=== PATIENT | male | born 1985 | race Caucasian/White ===

== ENCOUNTER 2017-02-17 18:27 | Emergency (ER) | payer SELFPAY ==
[2017-02-17 18:38] VITALS: BP 138/88
[2017-02-17 18:55] LABS: Hematocrit 23.7 % (35.5-45.6); Hemoglobin 8.5 gm/dl (11.8-15.2); Mean Corpuscular HGB Conc 36 % (32-34); Mean Corpuscular Hemoglobin 34 pg (28-32); Mean Corpuscular Volume 96 fl (84-94); Platelet Count 268 K/mm3 (140-440); Red Blood Count 2.47 M/mm3 (3.65-5.03); White Blood Count 7.8 K/mm3 (4.5-11.0)
[2017-02-17 18:58] LABS: Red Cell Distribution Width 27.1 % (13.2-15.2)
[2017-02-17] MEDS ORDERED: D5NS 0.2% 1,000 ML IV SCH (19:00)
[2017-02-17 21:08] LABS: Anisocytosis 2+; Blastocytes % (Manual) 0 %
[2017-02-17 21:09] LABS: Elliptocytes 1+; Poikilocytosis 2+; Sickle Cells 2+
[2017-02-17 21:10] LABS: Diff Status Complete; Platelet Estimate Consistent w Auto
== END 2017-02-17 19:20 | disposition left against medical advice (07) ==
LOC: ED 18:27
DX: Z53.21 Procedure and treatment not carried out due to patient leaving prior to being seen by health care provider (principal)
CPT/HCPCS: 36415; 85007; 85025; 85045

== ENCOUNTER 2017-04-26 16:47 | Inpatient (IN) | payer OTHER ==
[2017-04-26 18:53] LABS: Hemoglobin 6.7 gm/dl (11.8-15.2); Mean Corpuscular HGB Conc 36 % (32-34); Mean Corpuscular Hemoglobin 35 pg (28-32); Mean Corpuscular Volume 99 fl (84-94); Platelet Count 200 K/mm3 (140-440)
[2017-04-26 18:59] LABS: Red Cell Distribution Width 27.6 % (13.2-15.2)
[2017-04-26 19:01] LABS: Hematocrit 18.7 % (35.5-45.6)
[2017-04-26 19:52] LABS: Basophils % (Manual) 0 % (0.0-1.8); Total Cells Counted 100
[2017-04-26 19:53] LABS: Anisocytosis 2+; Platelet Estimate Consistent w Auto
[2017-04-26 19:54] LABS: Poikilocytosis 2+; Sickle Cells 2+; Target Cells 1+
[2017-04-26] MEDS ORDERED: BENADRYL IV ONE (23:26)
[2017-04-26] MEDS ORDERED: ZOFRAN IV ONE (23:26)
[2017-04-26] MEDS ORDERED: TORADOL IV ONE (23:26)
[2017-04-26] MEDS ORDERED: NACL 0.9% 1000 ML 1,000 ML IV ONE (23:26)
[2017-04-26] MEDS ORDERED: DILAUDID IV ONE (23:26)
--- NOTE | 2017-04-26 23:26 | Emergency Department Report ---
ED General Adult HPI - General Chief complaint: Sickle Cell Crisis Stated complaint: SICKLE CELL CRISIS Time Seen by Provider: 04/26/17 23:24 Source: patient Mode of arrival: Ambulatory Limitations: No Limitations - History of Present Illness Initial comments: Patient is a 20-year-old -[place] male who is presenting with a sickle cell crisis. Patient states been hurting all over for the past 2 weeks but worse over the past 3 days. Patient states the aching pains 10 out of 10 in severity arms legs ribs. Patient denies any nausea vomiting diarrhea. Patient takes methadone and oxycodone for pain at home was not helping. Patient denies any current fever as well. Nothing makes the pain better and nothing makes pain worse and does not radiate. Severity scale (0 -10): 9 - Related Data Home Medications Medication Instructions Recorded Confirmed Last Taken Folic Acid 1 mg pe PO QAM 04/26/17 04/26/17 04/26/17 Hydroxyurea 500 mg PO BID 04/26/17 04/26/17 04/26/17 Methadone [Dolophine] 10 mg PO Q6H 04/26/17 04/26/17 04/26/17 Oxycodone HCl 80 mg PO Q12H 04/26/17 04/26/17 04/26/17 Allergies Allergy/AdvReac Type Severity Reaction Status Date / Time acetaminophen [From Vicodin] Allergy Rash Verified 02/17/17 18:34 hydrocodone [From Vicodin] Allergy Rash Verified 02/17/17 18:34 ED Review of Systems ROS: Stated complaint: SICKLE CELL CRISIS Other details as noted in HPI Comment: All other systems reviewed and negative ED Past Medical Hx - Past Medical History Previous Medical History?: Yes Hx Hypertension: Yes Hx Sickle Cell Disease: Yes Additional medical history: enlarged heart, Gallstones - Surgical History Additional Surgical History: Left chest port - Social History Smoking Status: Never Smoker Substance Use Type: None - Medications Home Medications: Home Medications Medication Instructions Recorded Confirmed Last Taken Type Folic Acid 1 mg pe PO QAM 04/26/17 04/26/17 04/26/17 History Hydroxyurea 500 mg PO BID 04/26/17 04/26/17 04/26/17 History Methadone [Dolophine] 10 mg PO Q6H 04/26/17 04/26/17 04/26/17 History Oxycodone HCl 80 mg PO Q12H 04/26/17 04/26/17 04/26/17 History ED Physical Exam - General Limitations: No Limitations General appearance: alert, in distress - Head Head exam: Present: atraumatic, normocephalic - Eye Eye exam: Present: scleral icterus - ENT ENT exam: Present: mucous membranes moist - Neck Neck exam: Present: normal inspection - Respiratory Respiratory exam: Present: normal lung sounds bilaterally. Absent: respiratory distress, wheezes, rales, rhonchi - Cardiovascular Cardiovascular Exam: Present: regular rate, normal rhythm. Absent: systolic murmur, diastolic murmur, rubs, gallop - GI/Abdominal GI/Abdominal exam: Present: soft, normal bowel sounds. Absent: distended, tenderness, guarding - Rectal Rectal exam: Present: deferred - Extremities Exam Extremities exam: Present: normal inspection - Back Exam Back exam: Present: normal inspection - Neurological Exam Neurological exam: Present: alert, oriented X3 - Psychiatric Psychiatric exam: Present: normal affect, normal mood - Skin Skin exam: Present: warm, dry, intact, normal color. Absent: rash ED Course Vital Signs 04/26/17 04/26/17 04/26/17 17:34 23:10 23:14 Temperature 98.6 F Pulse Rate 74 63 Respiratory 18 8 L 17 Rate Blood Pressure 113/67 O2 Sat by Pulse 92 Oximetry 04/26/17 04/26/17 04/26/17 23:15 23:30 23:45 Temperature Pulse Rate 62 61 63 Respiratory 11 L 15 12 Rate Blood Pressure 125/73 120/70 124/74 O2 Sat by Pulse 97 94 93 Oximetry 04/27/17 04/27/17 04/27/17 00:00 00:15 00:30 Temperature Pulse Rate 70 66 74 Respiratory 11 L 15 21 Rate Blood Pressure 136/83 122/67 125/71 O2 Sat by Pulse 91 92 92 Oximetry 04/27/17 04/27/17 04/27/17 00:45 01:00 01:15 Temperature Pulse Rate 74 71 75 Respiratory 21 15 20 Rate Blood Pressure 130/75 122/64 124/66 O2 Sat by Pulse 92 92 89 Oximetry 04/27/17 04/27/17 04/27/17 01:30 01:45 02:00 Temperature Pulse Rate 66 71 73 Respiratory 13 16 19 Rate Blood Pressure 121/65 130/60 117/68 O2 Sat by Pulse 88 91 89 Oximetry 04/27/17 04/27/17 04/27/17 02:15 02:30 02:45 Temperature Pulse Rate 60 65 68 Respiratory 17 20 20 Rate Blood Pressure 116/67 113/65 120/73 O2 Sat by Pulse 96 91 89 Oximetry ED Medical Decision Making - Lab Data Result diagrams: 04/26/17 18:37 - Medical Decision Making Patient is a 31-year-old male with sickle cell who is presenting with pain. Patient received 4 Dilaudid here in emergency department and states the pain is no better. Patient also has received Toradol and Benadryl and IV fluids. Patient states he believes he may need to stay in the hospital. Patient will be admitted at this time to dr. Brennan. Critical care attestation.: If time is entered above; I have spent that time in minutes in the direct care of this critically ill patient, excluding procedure time. ED Disposition Clinical Impression: Sickle cell crisis Disposition: DC-[id number] OP ADMIT IP TO THIS HOSP Is pt being admited?: Yes Does the pt Need Aspirin: No Condition: Poor
[2017-04-27] MEDS ORDERED: DILAUDID IV ONE ×2 (01:26→02:17)
[2017-04-27] MEDS ORDERED: BENADRYL IV ONE (01:27)
[2017-04-27] MEDS: D5NS 0.2% 1,000 ML IV SCH ×3 (01:32→22:02)
[2017-04-27] MEDS ORDERED: NACL 0.9% 1000 ML 1,000 ML IV ONE (03:11)
[2017-04-27] MEDS ORDERED: DILAUDID IV PRN ×2 (05:57→10:41)
[2017-04-27] MEDS ORDERED: BENADRYL IV PRN (05:58)
[2017-04-27] MEDS ORDERED: NACL 0.9% 500 ML 500 ML IV ONE ×2 (07:19→12:00)
--- NOTE | 2017-04-27 07:21 | History and Physical Report ---
History of Present Illness Date of examination: 04/27/17 Date of admission: 04/27/17 03:12 Chief complaint: Generalized pain History of present illness: 30 year old -[place] male with past medical history significant for sickle cell anemia, hypertension, cardiomegaly present to the emergency department complaining of generalized pain for the last 5 days worsening over the last 3 days. The pain is worse in his back and legs. Pain is 9 out of 10, sharp, no aggravating or alleviating factors identified. Patient denied fever, chills, cough, weakness. Patient denied nausea, vomiting, leg swelling. Patient said he has been taking his medications but still continued to have severe pain. REVIEW OF SYSTEMS: GENERAL: no weight change, no fatigue, no fever HEAD: no head ache EYES: no blurry vision, no acute visual loss EARS: no hearing loss, no discharge, no earache NOSE: no stuffiness, no sneezing, no discharge MOUTH, THROAT AND NECK: no bleeding gums, no sore throat, no swollen neck CARDIAC: no palpitations, no dyspnea on exertion, no orthopnea, no PND, no edema. RESPIRATORY: no shortness of breath, no wheeze, no cough, no sputum, no hemoptysis, no asthma GI: no decreased appetite, no nausea, no vomiting, no dysphagia, no diarrhea, no constipation, no abdominal pain URINARY: no change in frequency, no urgency, no polyuria, no hematuria, no incontinence MUSCULOSKELETAL: no muscle weakness, no joint stiffness NEUROLOGIC: no loss of sensation/numbness, no tingling, no tremors, no weakness/ paralysis HEMATOLOGIC: + anemia, no easy bruising SKIN: no rashes ENDOCRINE: no heat/cold intolerance, no polyuria, no polydipsia, no thyroid problems, no diabetes PSYCHIATRIC: no anxiety, no depression, no suicidal ideations Past History Past Medical History: hypertension, other (Sickle cell anemia) Past Surgical History: cholecystectomy Social history: full code. denies: smoking, alcohol abuse, IV drug use Family history: no significant family history Medications and Allergies Allergies Allergy/AdvReac Type Severity Reaction Status Date / Time acetaminophen [From Vicodin] Allergy Rash Verified 02/17/17 18:34 hydrocodone [From Vicodin] Allergy Rash Verified 02/17/17 18:34 Home Medications Medication Instructions Recorded Confirmed Last Taken Type Folic Acid 1 mg pe PO QAM 04/26/17 04/26/17 04/26/17 History Hydroxyurea 500 mg PO BID 04/26/17 04/26/17 04/26/17 History Methadone [Dolophine] 10 mg PO Q6H 04/26/17 04/26/17 04/26/17 History Oxycodone HCl 80 mg PO Q12H 04/26/17 04/26/17 04/26/17 History Active Meds: Active Medications Diphenhydramine HCl (Benadryl) 25 mg IV Q4H PRN PRN Reason: Itching Last Admin: 04/27/17 06:40 Dose: 25 mg Heparin Sodium (Porcine) (Heparin) 5,000 unit SUB-Q Q8HR MADHAVI Hydromorphone HCl (Dilaudid) 1 mg IV Q3H PRN PRN Reason: Pain , Severe (7-10) Last Admin: 04/27/17 06:41 Dose: 1 mg Dextrose/Sodium Chloride (D5ns 0.2%) 1,000 mls @ 250 mls/hr IV DIRECT MADHAVI Last Infusion: 04/27/17 05:02 Dose: Infused Sodium Chloride (Nacl 0.9% 1000 Ml) 1,000 mls @ 125 mls/hr IV ONCE ONE Stop: 04/27/17 11:10 Last Admin: 04/27/17 06:26 Dose: 125 mls/hr Exam - Physical Exam Narrative exam: In mild distress from pain. The patient appeared well nourished and normally developed. Vital signs as documented. Head exam is unremarkable. No scleral icterus . Pale conjunctiva. Neck is without jugular venous distension, thyromegaly, or carotid bruits. Lungs are clear to auscultation. Cardiac exam reveals regular rate and Rhythm. First and second heart sounds normal. No murmurs, rubs or gallops. Abdominal exam reveals normal bowel sounds, no masses, no organomegaly and no aortic enlargement. Extremities are nonedematous and both femoral and pedal pulses are normal. MANAGER SHIFT: Alert and oriented 3. No focal weakness. - Constitutional Vitals: Temp Pulse Resp BP Pulse Ox 98.6 F 66 20 108/65 85 04/26/17 17:34 04/27/17 04:45 04/27/17 06:41 04/27/17 04:45 04/27/17 04:45 Results - Labs CBC & Chem 7: 04/26/17 18:37 Labs: Laboratory Last Values WBC 8.5 K/mm3 (4.5-11.0) 04/26/17 18:37 RBC 1.90 M/mm3 (3.65-5.03) L 04/26/17 18:37 Hgb 6.7 gm/dl (11.8-15.2) L 04/26/17 18:37 Hct 18.7 % (35.5-45.6) L* 04/26/17 18:37 MCV 99 fl (84-94) H 04/26/17 18:37 MCH 35 pg (28-32) H 04/26/17 18:37 MCHC 36 % (32-34) H 04/26/17 18:37 RDW 27.6 % (13.2-15.2) H 04/26/17 18:37 Plt Count 200 K/mm3 (140-440) 04/26/17 18:37 Add Manual Diff Complete 04/26/17 18:37 Total Counted 100 04/26/17 18:37 Seg Neuts % (Manual) 51.0 % (40.0-70.0) 04/26/17 18:37 Band Neutrophils % 0 % 04/26/17 18:37 Lymphocytes % (Manual) 33.0 % (13.4-35.0) 04/26/17 18:37 Reactive Lymphs % (Man) 0 % 04/26/17 18:37 Monocytes % (Manual) 10.0 % (0.0-7.3) H 04/26/17 18:37 Eosinophils % (Manual) 6.0 % (0.0-4.3) H 18 18:37 Basophils % (Manual) 0 % (0.0-1.8) 04/26/17 18:37 Metamyelocytes % 0 % 04/26/17 18:37 Myelocytes % 0 % 04/26/17 18:37 Promyelocytes % 0 % 04/26/17 18:37 Blast Cells % 0 % 04/26/17 18:37 Nucleated RBC % 5.0 % (0.0-0.9) H 04/26/17 18:37 Seg Neutrophils # Man 4.3 K/mm3 (1.8-7.7) 04/26/17 18:37 Band Neutrophils # 0.0 K/mm3 04/26/17 18:37 Lymphocytes # (Manual) 2.8 K/mm3 (1.2-5.4) 04/26/17 18:37 Abs React Lymphs (Man) 0.0 K/mm3 04/26/17 18:37 Monocytes # (Manual) 0.9 K/mm3 (0.0-0.8) H 04/26/17 18:37 Eosinophils # (Manual) 0.5 K/mm3 (0.0-0.4) H 04/26/17 18:37 Basophils # (Manual) 0.0 K/mm3 (0.0-0.1) 04/26/17 18:37 Metamyelocytes # 0.0 K/mm3 04/26/17 18:37 Myelocytes # 0.0 K/mm3 04/26/17 18:37 Promyelocytes # 0.0 K/mm3 04/26/17 18:37 Blast Cells # 0.0 K/mm3 04/26/17 18:37 WBC Morphology Not Reportable 04/26/17 18:37 Hypersegmented Neuts Not Reportable 04/26/17 18:37 Hyposegmented Neuts Not Reportable 04/26/17 18:37 Hypogranular Neuts Not Reportable 04/26/17 18:37 Smudge Cells Not Reportable 04/26/17 18:37 Toxic Granulation Not Reportable 04/26/17 18:37 Toxic Vacuolation Not Reportable 04/26/17 18:37 Dohle Bodies Not Reportable 04/26/17 18:37 Pelger-Huet Anomaly Not Reportable 04/26/17 18:37 Jillian Rods Not Reportable 04/26/17 18:37 Platelet Estimate Consistent w auto 04/26/17 18:37 Clumped Platelets Not Reportable 04/26/17 18:37 Plt Clumps, EDTA Not Reportable 04/26/17 18:37 Large Platelets Not Reportable 04/26/17 18:37 Giant Platelets Not Reportable 04/26/17 18:37 Platelet Satelliting Not Reportable 04/26/17 18:37 Plt Morphology Comment Not Reportable 04/26/17 18:37 RBC Morphology Not Reportable 04/26/17 18:37 Dimorphic RBCs Not Reportable 04/26/17 18:37 Polychromasia Not Reportable 04/26/17 18:37 Hypochromasia Not Reportable 04/26/17 18:37 Poikilocytosis 2+ 04/26/17 18:37 Anisocytosis 2+ 04/26/17 18:37 Microcytosis Not Reportable 04/26/17 18:37 Macrocytosis Not Reportable 04/26/17 18:37 Spherocytes Not Reportable 04/26/17 18:37 Pappenheimer Bodies Not Reportable 04/26/17 18:37 Sickle Cells 2+ 04/26/17 18:37 Target Cells 1+ 04/26/17 18:37 Tear Drop Cells Not Reportable 04/26/17 18:37 Ovalocytes Not Reportable 04/26/17 18:37 Helmet Cells Not Reportable 04/26/17 18:37 Estrella-Aguilar Bodies Not Reportable 04/26/17 18:37 [place] Rings Not Reportable 04/26/17 18:37 [place] Cells Not Reportable 04/26/17 18:37 Bite Cells Not Reportable 04/26/17 18:37 Crenated Cell Not Reportable 04/26/17 18:37 Elliptocytes 1+ 04/26/17 18:37 Acanthocytes (Spur) Not Reportable 04/26/17 18:37 Rouleaux Not Reportable 04/26/17 18:37 Hemoglobin C Crystals Not Reportable 04/26/17 18:37 Schistocytes Not Reportable 04/26/17 18:37 Malaria parasites Not Reportable 04/26/17 18:37 Percent Retic 6.92 % (0.78-2.58) H 04/26/17 18:37 Ronaldo Bodies Not Reportable 04/26/17 18:37 Hem Pathologist Commnt No 04/26/17 18:37 Assessment and Plan Assessment and plan: Sickle cell pain crisis Severe anemia Hypertension Cardiomegaly - Pain control - Blood pressure is within normal limits and doesn't need any blood pressure medication for now - We'll transfuse him with 2 units of blood - Consult hematology DVT prophylaxis - Heparin Disposition - Admit to medical floor Advance Directives: Yes VTE prophylaxis?: Chemical Plan of care discussed with patient/family: Yes
[2017-04-27] MEDS ORDERED: CATHFLO IV ONE (08:56)
[2017-04-27] MEDS ORDERED: WATER FOR INJ (PF) 10 ML ONE (09:10)
[2017-04-27] MEDS: DILAUDID IV PRN ×4 (10:52→20:53)
[2017-04-27] MEDS: BENADRYL IV PRN ×2 (10:53→16:41)
--- NOTE | 2017-04-27 11:38 | XRay Report ---
AP CHEST: HISTORY: chest pain No comparison. Mild cardiomegaly and mild vascular congestion are identified. No consolidation, large pleural effusion or pneumothorax. Mild biapical scarring. A left Amkopp-j-Hdet is in good position terminating in the lower SVC. IMPRESSION: Mild cardiomegaly and pulmonary venous congestion.
[2017-04-27] MEDS: HEPARIN SUB-Q SCH ×3 (11:45→22:03)
--- NOTE | 2017-04-27 17:00 | Consultation ---
History of Present Illness - Reason for Consult Consult date: 04/27/17 SCD/Anemia, pain crisis. Requesting physician: JOSEFA GUTIERREZ - History of Present Illness Thank you for this consult, patient seen/examined, record reviewed, case d/w patient. Asked to see for the reason above. He recently relocated from [place]. Admitted via ED for sxs control.He is currently on adequate management , except that his IV fluid may be turned down to 175cc/hr, due to the fact that he has Cardiomegally, and Pulm vascular congestion.Will follow you . Past History Past Medical History: anemia, hypertension, other (Sickle cell anemia) Past Surgical History: cholecystectomy Social history: single, full code. denies: smoking, alcohol abuse, IV drug use Family history: no significant family history Medications and Allergies Allergies Allergy/AdvReac Type Severity Reaction Status Date / Time acetaminophen [From Vicodin] Allergy Rash Verified 02/17/17 18:34 hydrocodone [From Vicodin] Allergy Rash Verified 02/17/17 18:34 Home Medications Medication Instructions Recorded Confirmed Last Taken Type Folic Acid 1 mg pe PO QAM 04/26/17 04/26/17 04/26/17 History Hydroxyurea 500 mg PO BID 04/26/17 04/26/17 04/26/17 History Methadone [Dolophine] 10 mg PO Q6H 04/26/17 04/26/17 04/26/17 History Oxycodone HCl 80 mg PO Q12H 04/26/17 04/26/17 04/26/17 History Active Meds: Active Medications Diphenhydramine HCl (Benadryl) 25 mg IV Q6H PRN PRN Reason: Itching Last Admin: 04/27/17 16:41 Dose: 25 mg Heparin Sodium (Porcine) (Heparin) 5,000 unit SUB-Q Q8HR MADHAVI Last Admin: 04/27/17 13:42 Dose: Not Given Hydromorphone HCl (Dilaudid) 2 mg IV Q3H PRN PRN Reason: Pain , Severe (7-10) Last Admin: 04/27/17 16:41 Dose: 2 mg Dextrose/Sodium Chloride (D5ns 0.2%) 1,000 mls @ 250 mls/hr IV DIRECT MADHAVI Last Infusion: 04/27/17 05:02 Dose: Infused Review of Systems Constitutional: chronic pain Musculoskeletal: low back pain Exam - Constitutional Vitals: Temp Pulse Resp BP Pulse Ox 98.6 F 74 18 102/58 92 04/27/17 15:37 04/27/17 15:37 04/27/17 15:37 04/27/17 15:37 04/27/17 15:37 General appearance: Present: mild distress, well-nourished - EENT Eyes: Present: PERRL ENT: hearing intact, clear oral mucosa - Neck Neck: Present: supple, normal ROM - Respiratory Respiratory effort: normal Respiratory: bilateral: CTA - Cardiovascular Heart Sounds: Present: S1 & S2. Absent: rub, click - Extremities Extremities: pulses symmetrical, No edema Peripheral Pulses: within normal limits - Abdominal General gastrointestinal: Present: soft, non-tender, non-distended, normal bowel sounds Male genitourinary: Present: deferred - Rectal Rectal Exam: deferred - Integumentary Integumentary: Present: clear, warm, dry - Musculoskeletal Musculoskeletal: gait normal, strength equal bilaterally - Psychiatric Psychiatric: appropriate mood/affect, intact judgment & insight - Neurologic Neurologic: CNII-XII intact, moves all extremities Results - Labs CBC & Chem 7: 04/26/17 18:37 Labs: Abnormal lab results 04/26/17 04/27/17 Range/Units 18:37 10:50 RBC 1.90 L (3.65-5.03) M/mm3 Hgb 6.7 L (11.8-15.2) gm/dl Hct 18.7 L* (35.5-45.6) % MCV 99 H (84-94) fl MCH 35 H (28-32) pg MCHC 36 H (32-34) % RDW 27.6 H (13.2-15.2) % Monocytes % (Manual) 10.0 H (0.0-7.3) % Eosinophils % (Manual) 6.0 H (0.0-4.3) % Nucleated RBC % 5.0 H (0.0-0.9) % Monocytes # (Manual) 0.9 H (0.0-0.8) K/mm3 Eosinophils # (Manual) 0.5 H (0.0-0.4) K/mm3 Percent Retic 6.92 H (0.78-2.58) % Crossmatch See Detail Assessment and Plan - Patient Problems (1) Sickle cell crisis Current Visit: Yes Status: Acute Plan to address problem: Supportive as you are doing. (2) Anemia Current Visit: Yes Status: Acute Plan to address problem: replacement transfusion, while you watch his iron content. (3) Cardiomegaly Current Visit: Yes Status: Acute Plan to address problem: May reduce rate of IVF.
[2017-04-27 19:25] LABS: Iron 110 ug/dL (49-181)
[2017-04-27 19:37] LABS: Total Iron Binding Capacity 121 mcg/dL (250-450)
[2017-04-28] MEDS: DILAUDID IV PRN ×7 (00:32→21:32)
[2017-04-28] MEDS: BENADRYL IV PRN ×4 (00:34→21:32)
[2017-04-28] MEDS: HEPARIN SUB-Q SCH ×3 (05:27→21:37)
[2017-04-28] MEDS: D5NS 0.2% 1,000 ML IV SCH ×3 (05:37→19:26)
[2017-04-28 08:04] LABS: Hemoglobin 6.8 gm/dl (11.8-15.2); Mean Corpuscular HGB Conc 35 % (32-34); Mean Corpuscular Hemoglobin 35 pg (28-32); Mean Corpuscular Volume 99 fl (84-94); Platelet Count 175 K/mm3 (140-440); Red Blood Count 1.93 M/mm3 (3.65-5.03)
[2017-04-28 08:12] LABS: Red Cell Distribution Width 28.5 % (13.2-15.2)
[2017-04-28 08:15] LABS: Hematocrit 19.2 % (35.5-45.6)
[2017-04-28 08:26] LABS: BUN/Creatinine Ratio 16; Blood Urea Nitrogen 13 mg/dL (9-20); Hemolysis Index 8
[2017-04-28] MEDS: NACL 0.9% 500 ML 500 ML ONE ×3 (08:30→11:26)
--- NOTE | 2017-04-28 11:26 | Progress Note ---
Assessment and Plan Assessment and plan: Sickle cell pain crisis Severe anemia Hypertension Cardiomegaly - Pain control - Blood pressure is within normal limits and doesn't need any blood pressure medication for now - We'll transfuse him with 2 units of blood - Consult hematology DVT prophylaxis - Heparin Disposition - Admit to medical floor Hospitalist Physical - Constitutional Vitals: Temp Pulse Resp BP Pulse Ox 98.4 F 54 L 16 117/74 99 04/28/17 11:00 04/28/17 11:00 04/28/17 11:00 04/28/17 11:00 04/28/17 11:00 General appearance: Present: mild distress, well-nourished Results - Labs CBC & Chem 7: 04/28/17 07:45 04/28/17 07:45 Labs: Laboratory Last Values WBC 11.6 K/mm3 (4.5-11.0) H 04/28/17 07:45 RBC 1.93 M/mm3 (3.65-5.03) L 04/28/17 07:45 Hgb 6.8 gm/dl (11.8-15.2) L 04/28/17 07:45 Hct 19.2 % (35.5-45.6) L* 04/28/17 07:45 MCV 99 fl (84-94) H 04/28/17 07:45 MCH 35 pg (28-32) H 04/28/17 07:45 MCHC 35 % (32-34) H 04/28/17 07:45 RDW 28.5 % (13.2-15.2) H 04/28/17 07:45 Plt Count 175 K/mm3 (140-440) 04/28/17 07:45 Add Manual Diff Complete 04/26/17 18:37 Total Counted 100 04/26/17 18:37 Seg Neuts % (Manual) 51.0 % (40.0-70.0) 04/26/17 18:37 Band Neutrophils % 0 % 04/26/17 18:37 Lymphocytes % (Manual) 33.0 % (13.4-35.0) 04/26/17 18:37 Reactive Lymphs % (Man) 0 % 04/26/17 18:37 Monocytes % (Manual) 10.0 % (0.0-7.3) H 01/19/18 18:37 Eosinophils % (Manual) 6.0 % (0.0-4.3) H 04/26/17 18:37 Basophils % (Manual) 0 % (0.0-1.8) 04/26/17 18:37 Metamyelocytes % 0 % 04/26/17 18:37 Myelocytes % 0 % 04/26/17 18:37 Promyelocytes % 0 % 04/26/17 18:37 Blast Cells % 0 % 04/26/17 18:37 Nucleated RBC % 5.0 % (0.0-0.9) H 04/26/17 18:37 Seg Neutrophils # Man 4.3 K/mm3 (1.8-7.7) 04/26/17 18:37 Band Neutrophils # 0.0 K/mm3 04/26/17 18:37 Lymphocytes # (Manual) 2.8 K/mm3 (1.2-5.4) 04/26/17 18:37 Abs React Lymphs (Man) 0.0 K/mm3 04/26/17 18:37 Monocytes # (Manual) 0.9 K/mm3 (0.0-0.8) H 04/26/17 18:37 Eosinophils # (Manual) 0.5 K/mm3 (0.0-0.4) H 04/26/17 18:37 Basophils # (Manual) 0.0 K/mm3 (0.0-0.1) 04/26/17 18:37 Metamyelocytes # 0.0 K/mm3 04/26/17 18:37 Myelocytes # 0.0 K/mm3 04/26/17 18:37 Promyelocytes # 0.0 K/mm3 04/26/17 18:37 Blast Cells # 0.0 K/mm3 04/26/17 18:37 WBC Morphology Not Reportable 04/26/17 18:37 Hypersegmented Neuts Not Reportable 04/26/17 18:37 Hyposegmented Neuts Not Reportable 04/26/17 18:37 Hypogranular Neuts Not Reportable 04/26/17 18:37 Smudge Cells Not Reportable 04/26/17 18:37 Toxic Granulation Not Reportable 04/26/17 18:37 Toxic Vacuolation Not Reportable 04/26/17 18:37 Dohle Bodies Not Reportable 04/26/17 18:37 Pelger-Huet Anomaly Not Reportable 04/26/17 18:37 Jillian Rods Not Reportable 04/26/17 18:37 Platelet Estimate Consistent w auto 04/26/17 18:37 Clumped Platelets Not Reportable 04/26/17 18:37 Plt Clumps, EDTA Not Reportable 04/26/17 18:37 Large Platelets Not Reportable 04/26/17 18:37 Giant Platelets Not Reportable 04/26/17 18:37 Platelet Satelliting Not Reportable 04/26/17 18:37 Plt Morphology Comment Not Reportable 04/26/17 18:37 RBC Morphology Not Reportable 04/26/17 18:37 Dimorphic RBCs Not Reportable 04/26/17 18:37 Polychromasia Not Reportable 04/26/17 18:37 Hypochromasia Not Reportable 04/26/17 18:37 Poikilocytosis 2+ 04/26/17 18:37 Anisocytosis 2+ 04/26/17 18:37 Microcytosis Not Reportable 04/26/17 18:37 Macrocytosis Not Reportable 04/26/17 18:37 Spherocytes Not Reportable 04/26/17 18:37 Pappenheimer Bodies Not Reportable 04/26/17 18:37 Sickle Cells 2+ 04/26/17 18:37 Target Cells 1+ 04/26/17 18:37 Tear Drop Cells Not Reportable 04/26/17 18:37 Ovalocytes Not Reportable 04/26/17 18:37 Helmet Cells Not Reportable 04/26/17 18:37 Estrella-[place] Bodies Not Reportable 04/26/17 18:37 [place] Rings Not Reportable 04/26/17 18:37 [place] Cells Not Reportable 04/26/17 18:37 Bite Cells Not Reportable 04/26/17 18:37 Crenated Cell Not Reportable 04/26/17 18:37 Elliptocytes 1+ 04/26/17 18:37 Acanthocytes (Spur) Not Reportable 04/26/17 18:37 Rouleaux Not Reportable 04/26/17 18:37 Hemoglobin C Crystals Not Reportable 04/26/17 18:37 Schistocytes Not Reportable 04/26/17 18:37 Malaria parasites Not Reportable 04/26/17 18:37 Percent Retic 6.92 % (0.78-2.58) H 04/26/17 18:37 Ronaldo Bodies Not Reportable 04/26/17 18:37 Hem Pathologist Commnt No 04/26/17 18:37 Sodium 139 mmol/L (137-145) 04/28/17 07:45 Potassium 4.4 mmol/L (3.6-5.0) 04/28/17 07:45 Chloride 105.9 mmol/L (98-107) 04/28/17 07:45 Carbon Dioxide 24 mmol/L (22-30) 04/28/17 07:45 Anion Gap 14 mmol/L 04/28/17 07:45 BUN 13 mg/dL (9-20) 04/28/17 07:45 Creatinine 0.8 mg/dL (0.8-1.5) 04/28/17 07:45 Estimated GFR > 60 ml/min 04/28/17 07:45 BUN/Creatinine Ratio 16 % 04/28/17 07:45 Glucose 128 mg/dL (75-100) H 04/28/17 07:45 Calcium 8.0 mg/dL (8.4-10.2) L 04/28/17 07:45 Iron 110 ug/dL (49-181) 04/27/17 18:45 TIBC 121 mcg/dL (250-450) L 04/27/17 18:45 Ferritin > 2000.0 ng/mL (13.0-400.0) H 04/27/17 18:45 Blood Type O POSITIVE 04/27/17 10:50 Antibody Screen Negative 04/27/17 10:50 Crossmatch See Detail 04/27/17 10:50
[2017-04-28 11:33] LABS: Anisocytosis 2+; Basophils % (Manual) 0 % (0.0-1.8); Poikilocytosis 2+; Sickle Cells 2+; Total Cells Counted 100
[2017-04-28 11:34] LABS: Target Cells Few
--- NOTE | 2017-04-28 14:05 | Progress Note ---
Assessment and Plan - Patient Problems (1) Sickle cell crisis Current Visit: Yes Status: Acute Plan to address problem: Supportive as you are doing. (2) Anemia Current Visit: Yes Status: Acute Plan to address problem: replacement transfusion, while you watch his iron content. (3) Cardiomegaly Current Visit: Yes Status: Acute Plan to address problem: May reduce rate of IVF. (4) Iron overload due to repeated red blood cell transfusions Current Visit: Yes Status: Acute Plan to address problem: will address out patient. Subjective Date of service: 04/28/17 Interval history: patient resting in bed, labs reviewed, agree with replacement transfusion. Objective - Constitutional Vitals: Vital Signs - 12hr 04/28/17 04/28/17 04/28/17 02:28 02:43 03:13 Temperature 98.5 F 98.7 F 98.5 F Pulse Rate 67 60 60 Respiratory 20 20 20 Rate Blood Pressure 99/45 121/67 120/78 O2 Sat by Pulse 92 98 99 Oximetry 04/28/17 04/28/17 04/28/17 03:43 04:13 04:43 Temperature 98.7 F 98.6 F 98.6 F Pulse Rate 56 L 58 L 54 L Respiratory 20 20 20 Rate Blood Pressure 129/66 130/76 116/77 O2 Sat by Pulse 97 98 98 Oximetry 04/28/17 04/28/17 04/28/17 07:48 08:47 09:02 Temperature 98.8 F 99 F 99.1 F Pulse Rate 57 L 63 60 Respiratory 16 16 16 Rate Blood Pressure 134/85 119/69 112/6 O2 Sat by Pulse 98 99 99 Oximetry 04/28/17 04/28/17 04/28/17 09:28 10:00 11:00 Temperature 98.7 F 98.8 F 98.4 F Pulse Rate 54 L 57 L 54 L Respiratory 16 15 16 Rate Blood Pressure 117/70 99/51 117/74 O2 Sat by Pulse 99 100 99 Oximetry General appearance: Present: mild distress, well-nourished - EENT Eyes: PERRL, EOM intact ENT: hearing intact, clear oral mucosa Ears: bilateral: normal - Neck Neck: supple, normal ROM - Respiratory Respiratory effort: normal Respiratory: bilateral: CTA - Breasts Breasts: deferred - Cardiovascular Rhythm: regular Heart Sounds: Present: S1 & S2. Absent: gallop, rub Extremities: pulses intact, No edema, normal color, Full ROM - Gastrointestinal General gastrointestinal: Present: soft, non-tender, non-distended, normal bowel sounds Rectal Exam: deferred - Genitourinary Male genitourinary: deferred - Integumentary Integumentary: clear, warm, dry - Musculoskeletal Musculoskeletal: 1, strength equal bilaterally - Neurologic Neurologic: moves all extremities - Psychiatric Psychiatric: memory intact, appropriate mood/affect, intact judgment & insight - Labs CBC & Chem 7: 04/28/17 07:45 04/28/17 07:45 Labs: Abnormal lab results 04/27/17 04/27/17 04/27/17 Range/Units 10:50 18:45 18:45 WBC (4.5-11.0) K/mm3 RBC (3.65-5.03) M/mm3 Hgb (11.8-15.2) gm/dl Hct (35.5-45.6) % MCV (84-94) fl MCH (28-32) pg MCHC (32-34) % RDW (13.2-15.2) % Glucose (75-100) mg/dL Calcium (8.4-10.2) mg/dL TIBC 121 L (250-450) mcg/dL Ferritin > 2000.0 H (13.0-400.0) ng/mL Crossmatch See Detail 04/28/17 04/28/17 Range/Units 07:45 07:45 WBC 11.6 H (4.5-11.0) K/mm3 RBC 1.93 L (3.65-5.03) M/mm3 Hgb 6.8 L (11.8-15.2) gm/dl Hct 19.2 L* (35.5-45.6) % MCV 99 H (84-94) fl MCH 35 H (28-32) pg MCHC 35 H (32-34) % RDW 28.5 H (13.2-15.2) % Glucose 128 H (75-100) mg/dL Calcium 8.0 L (8.4-10.2) mg/dL TIBC (250-450) mcg/dL Ferritin (13.0-400.0) ng/mL Crossmatch
--- NOTE | 2017-04-28 15:00 | Progress Note ---
Assessment and Plan Assessment and plan: Sickle cell pain crisis - Continue on IV Dilaudid - Hematology recommendations of the chest Severe anemia - Patient transfused 2 units of blood - We'll check posttransfusion H&H Iron overload - Hematology recommends to adress as an O/P Hypertension Cardiomegaly DVT prophylaxis - Heparin Disposition -Continue inpatient care. History Interval history: Patient was seen and evaluated this morning, he is complaining pain in his back and legs but is getting a little better. Hospitalist Physical - Physical exam Narrative exam: In mild distress from pain. The patient appeared well nourished and normally developed. Vital signs as documented. Head exam is unremarkable. No scleral icterus . Pale conjunctiva. Neck is without jugular venous distension, thyromegaly, or carotid bruits. Lungs are clear to auscultation. Cardiac exam reveals regular rate and Rhythm. First and second heart sounds normal. No murmurs, rubs or gallops. Abdominal exam reveals normal bowel sounds, no masses, no organomegaly and no aortic enlargement. Extremities are nonedematous and both femoral and pedal pulses are normal. 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 No focal weakness. - Constitutional Vitals: Temp Pulse Resp BP Pulse Ox 98.4 F 54 L 16 117/74 99 04/28/17 11:00 04/28/17 11:00 04/28/17 11:00 04/28/17 11:00 04/28/17 11:00 General appearance: Present: mild distress, well-nourished Results - Labs CBC & Chem 7: 04/28/17 07:45 04/28/17 07:45 Labs: Laboratory Last Values WBC 11.6 K/mm3 (4.5-11.0) H 04/28/17 07:45 RBC 1.93 M/mm3 (3.65-5.03) L 04/28/17 07:45 Hgb 6.8 gm/dl (11.8-15.2) L 04/28/17 07:45 Hct 19.2 % (35.5-45.6) L* 04/28/17 07:45 MCV 99 fl (84-94) H 04/28/17 07:45 MCH 35 pg (28-32) H 04/28/17 07:45 MCHC 35 % (32-34) H 04/28/17 07:45 RDW 28.5 % (13.2-15.2) H 04/28/17 07:45 Plt Count 175 K/mm3 (140-440) 04/28/17 07:45 Add Manual Diff Complete 04/28/17 07:45 Total Counted 100 04/28/17 07:45 Seg Neuts % (Manual) 65.0 % (40.0-70.0) 04/28/17 07:45 Band Neutrophils % 0 % 04/28/17 07:45 Lymphocytes % (Manual) 27.0 % (13.4-35.0) 04/28/17 07:45 Reactive Lymphs % (Man) 0 % 04/28/17 07:45 Monocytes % (Manual) 5.0 % (0.0-7.3) 04/28/17 07:45 Eosinophils % (Manual) 3.0 % (0.0-4.3) 04/28/17 07:45 Basophils % (Manual) 0 % (0.0-1.8) 04/28/17 07:45 Metamyelocytes % 0 % 04/28/17 07:45 Myelocytes % 0 % 04/28/17 07:45 Promyelocytes % 0 % 04/28/17 07:45 Blast Cells % 0 % 04/28/17 07:45 Nucleated RBC % Not Reportable 04/28/17 07:45 Seg Neutrophils # Man 7.5 K/mm3 (1.8-7.7) 04/28/17 07:45 Band Neutrophils # 0.0 K/mm3 04/28/17 07:45 Lymphocytes # (Manual) 3.1 K/mm3 (1.2-5.4) 04/28/17 07:45 Abs React Lymphs (Man) 0.0 K/mm3 04/28/17 07:45 Monocytes # (Manual) 0.6 K/mm3 (0.0-0.8) 04/28/17 07:45 Eosinophils # (Manual) 0.3 K/mm3 (0.0-0.4) 04/28/17 07:45 Basophils # (Manual) 0.0 K/mm3 (0.0-0.1) 04/28/17 07:45 Metamyelocytes # 0.0 K/mm3 04/28/17 07:45 Myelocytes # 0.0 K/mm3 04/28/17 07:45 Promyelocytes # 0.0 K/mm3 04/28/17 07:45 Blast Cells # 0.0 K/mm3 04/28/17 07:45 WBC Morphology Not Reportable 04/28/17 07:45 Hypersegmented Neuts Not Reportable 04/28/17 07:45 Hyposegmented Neuts Not Reportable 04/28/17 07:45 Hypogranular Neuts Not Reportable 04/28/17 07:45 Smudge Cells Not Reportable 04/28/17 07:45 Toxic Granulation Not Reportable 04/28/17 07:45 Toxic Vacuolation Not Reportable 04/28/17 07:45 Dohle Bodies Not Reportable 04/28/17 07:45 Pelger-Huet Anomaly Not Reportable 04/28/17 07:45 Jillian Rods Not Reportable 04/28/17 07:45 Platelet Estimate Not Reportable 04/28/17 07:45 Clumped Platelets Not Reportable 04/28/17 07:45 Plt Clumps, EDTA Not Reportable 04/28/17 07:45 Large Platelets Not Reportable 04/28/17 07:45 Giant Platelets Not Reportable 04/28/17 07:45 Platelet Satelliting Not Reportable 04/28/17 07:45 Plt Morphology Comment Not Reportable 04/28/17 07:45 RBC Morphology Not Reportable 04/28/17 07:45 Dimorphic RBCs Not Reportable 04/28/17 07:45 Polychromasia 1+ 04/28/17 07:45 Hypochromasia Not Reportable 04/28/17 07:45 Poikilocytosis 2+ 04/28/17 07:45 Anisocytosis 2+ 04/28/17 07:45 Microcytosis Not Reportable 04/28/17 07:45 Macrocytosis Not Reportable 04/28/17 07:45 Spherocytes Not Reportable 04/28/17 07:45 Pappenheimer Bodies Not Reportable 04/28/17 07:45 Sickle Cells 2+ 04/28/17 07:45 Target Cells Few 04/28/17 07:45 Tear Drop Cells Not Reportable 04/28/17 07:45 Ovalocytes Not Reportable 04/28/17 07:45 Helmet Cells Not Reportable 04/28/17 07:45 Estrella-Denhoff Bodies Not Reportable 04/28/17 07:45 [place] Rings Not Reportable 04/28/17 07:45 [place] Cells Not Reportable 04/28/17 07:45 Bite Cells Not Reportable 04/28/17 07:45 Crenated Cell Not Reportable 04/28/17 07:45 Elliptocytes 1+ 04/28/17 07:45 Acanthocytes (Spur) Not Reportable 04/28/17 07:45 Rouleaux Not Reportable 04/28/17 07:45 Hemoglobin C Crystals Not Reportable 04/28/17 07:45 Schistocytes Not Reportable 04/28/17 07:45 Malaria parasites Not Reportable 04/28/17 07:45 Percent Retic 6.92 % (0.78-2.58) H 04/26/17 18:37 Ronaldo Bodies Not Reportable 04/28/17 07:45 Hem Pathologist Commnt No 04/28/17 07:45 Sodium 139 mmol/L (137-145) 04/28/17 07:45 Potassium 4.4 mmol/L (3.6-5.0) 04/28/17 07:45 Chloride 105.9 mmol/L (98-107) 04/28/17 07:45 Carbon Dioxide 24 mmol/L (22-30) 04/28/17 07:45 Anion Gap 14 mmol/L 04/28/17 07:45 BUN 13 mg/dL (9-20) 04/28/17 07:45 Creatinine 0.8 mg/dL (0.8-1.5) 04/28/17 07:45 Estimated GFR > 60 ml/min 04/28/17 07:45 BUN/Creatinine Ratio 16 % 04/28/17 07:45 Glucose 128 mg/dL (75-100) H 04/28/17 07:45 Calcium 8.0 mg/dL (8.4-10.2) L 04/28/17 07:45 Iron 110 ug/dL (49-181) 04/27/17 18:45 TIBC 121 mcg/dL (250-450) L 04/27/17 18:45 Ferritin > 2000.0 ng/mL (13.0-400.0) H 04/27/17 18:45 Blood Type O POSITIVE 04/27/17 10:50 Antibody Screen Negative 04/27/17 10:50 Crossmatch See Detail 04/27/17 10:50
[2017-04-28 16:11] LABS: Hematocrit 22.2 % (35.5-45.6); Hemoglobin 7.7 gm/dl (11.8-15.2)
[2017-04-29] MEDS: DILAUDID IV PRN ×8 (00:52→23:56)
[2017-04-29] MEDS ORDERED: NACL 0.9% 500 ML IV ONE (01:00)
[2017-04-29] MEDS: D5NS 0.2% 1,000 ML IV SCH ×2 (04:11→08:40)
[2017-04-29] MEDS: BENADRYL IV PRN ×4 (04:14→23:55)
[2017-04-29 06:28] LABS: Hematocrit 22.6 % (35.5-45.6); Mean Corpuscular HGB Conc 35 % (32-34); Mean Corpuscular Hemoglobin 34 pg (28-32); Mean Corpuscular Volume 97 fl (84-94); Platelet Count 179 K/mm3 (140-440); Red Blood Count 2.33 M/mm3 (3.65-5.03)
[2017-04-29 06:37] LABS: Lymphocytes % (Auto) 33.9 % (13.4-35.0); Red Cell Distribution Width 28.6 % (13.2-15.2)
[2017-04-29 06:38] LABS: Basophils # (Auto) 0.1 K/mm3 (0.0-0.1); Basophils % (Auto) 0.6 % (0.0-1.8); Eosinophils # (Auto) 0.6 K/mm3 (0.0-0.4); Eosinophils % (Auto) 6.4 % (0.0-4.3); Lymphocytes # (Auto) 3.4 K/mm3 (1.2-5.4); Monocytes % (Auto) 10.3 % (0.0-7.3)
[2017-04-29] MEDS ORDERED: OXYCODONE HCL 80 MG PO SCH (08:45)
[2017-04-29] MEDS: HEPARIN SUB-Q SCH ×3 (10:15→23:13)
[2017-04-29] MEDS: OxyCONTIN PO SCH ×2 (10:17→21:13)
[2017-04-29] MEDS: DOLOPHINE PO SCH ×3 (10:18→23:55)
--- NOTE | 2017-04-29 16:47 | Progress Note ---
Assessment and Plan Assessment and plan: Sickle cell pain crisis - Continue on IV Dilaudid - Hematology recommendations of the chest Severe anemia - Patient transfused 2 units of blood - posttransfusion hemoglobin is 8 Iron overload - Hematology recommends to address as an O/P Hypertension Cardiomegaly DVT prophylaxis - Heparin Disposition -Possible discharge in a.m. History Interval history: Patient is still complaining severe back and leg pain. Hospitalist Physical - Physical exam Narrative exam: In mild distress from pain. The patient appeared well nourished and normally developed. Vital signs as documented. Head exam is unremarkable. No scleral icterus . Pale conjunctiva. Neck is without jugular venous distension, thyromegaly, or carotid bruits. Lungs are clear to auscultation. Cardiac exam reveals regular rate and Rhythm. First and second heart sounds normal. No murmurs, rubs or gallops. Abdominal exam reveals normal bowel sounds, no masses, no organomegaly and no aortic enlargement. Extremities are nonedematous and both femoral and pedal pulses are normal. 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 No focal weakness. - Constitutional Vitals: Temp Pulse Resp BP Pulse Ox 98.9 F 54 L 16 125/78 89 04/29/17 07:36 04/29/17 07:36 04/29/17 07:36 04/29/17 07:36 04/29/17 07:36 General appearance: Present: mild distress, well-nourished Results - Labs CBC & Chem 7: 04/29/17 06:00 04/28/17 07:45 Labs: Laboratory Last Values WBC 10.0 K/mm3 (4.5-11.0) 04/29/17 06:00 RBC 2.33 M/mm3 (3.65-5.03) L 04/29/17 06:00 Hgb 8.0 gm/dl (11.8-15.2) L 04/29/17 06:00 Hct 22.6 % (35.5-45.6) L 04/29/17 06:00 MCV 97 fl (84-94) H 04/29/17 06:00 MCH 34 pg (28-32) H 04/29/17 06:00 MCHC 35 % (32-34) H 04/29/17 06:00 RDW 28.6 % (13.2-15.2) H 04/29/17 06:00 Plt Count 179 K/mm3 (140-440) 04/29/17 06:00 Lymph % (Auto) 33.9 % (13.4-35.0) 04/29/17 06:00 [place] % (Auto) 10.3 % (0.0-7.3) H 04/29/17 06:00 Eos % (Auto) 6.4 % (0.0-4.3) H 04/29/17 06:00 Baso % (Auto) 0.6 % (0.0-1.8) 04/29/17 06:00 Lymph # 3.4 K/mm3 (1.2-5.4) 04/29/17 06:00 [place] # 1.0 K/mm3 (0.0-0.8) H 04/29/17 06:00 Eos # 0.6 K/mm3 (0.0-0.4) H 04/29/17 06:00 Baso # 0.1 K/mm3 (0.0-0.1) 04/29/17 06:00 Add Manual Diff Complete 04/28/17 07:45 Total Counted 100 04/28/17 07:45 Seg Neutrophils % 48.8 % (40.0-70.0) 04/29/17 06:00 Seg Neuts % (Manual) 65.0 % (40.0-70.0) 04/28/17 07:45 Band Neutrophils % 0 % 04/28/17 07:45 Lymphocytes % (Manual) 27.0 % (13.4-35.0) 04/28/17 07:45 Reactive Lymphs % (Man) 0 % 04/28/17 07:45 Monocytes % (Manual) 5.0 % (0.0-7.3) 04/28/17 07:45 Eosinophils % (Manual) 3.0 % (0.0-4.3) 04/28/17 07:45 Basophils % (Manual) 0 % (0.0-1.8) 04/28/17 07:45 Metamyelocytes % 0 % 04/28/17 07:45 Myelocytes % 0 % 04/28/17 07:45 Promyelocytes % 0 % 04/28/17 07:45 Blast Cells % 0 % 04/28/17 07:45 Nucleated RBC % Not Reportable 04/28/17 07:45 Seg Neutrophils # 4.9 K/mm3 (1.8-7.7) 04/29/17 06:00 Seg Neutrophils # Man 7.5 K/mm3 (1.8-7.7) 04/28/17 07:45 Band Neutrophils # 0.0 K/mm3 04/28/17 07:45 Lymphocytes # (Manual) 3.1 K/mm3 (1.2-5.4) 04/28/17 07:45 Abs React Lymphs (Man) 0.0 K/mm3 04/28/17 07:45 Monocytes # (Manual) 0.6 K/mm3 (0.0-0.8) 04/28/17 07:45 Eosinophils # (Manual) 0.3 K/mm3 (0.0-0.4) 04/28/17 07:45 Basophils # (Manual) 0.0 K/mm3 (0.0-0.1) 04/28/17 07:45 Metamyelocytes # 0.0 K/mm3 04/28/17 07:45 Myelocytes # 0.0 K/mm3 04/28/17 07:45 Promyelocytes # 0.0 K/mm3 04/28/17 07:45 Blast Cells # 0.0 K/mm3 04/28/17 07:45 WBC Morphology Not Reportable 04/28/17 07:45 Hypersegmented Neuts Not Reportable 04/28/17 07:45 Hyposegmented Neuts Not Reportable 04/28/17 07:45 Hypogranular Neuts Not Reportable 04/28/17 07:45 Smudge Cells Not Reportable 04/28/17 07:45 Toxic Granulation Not Reportable 04/28/17 07:45 Toxic Vacuolation Not Reportable 04/28/17 07:45 Dohle Bodies Not Reportable 04/28/17 07:45 Pelger-Huet Anomaly Not Reportable 04/28/17 07:45 Jillian Rods Not Reportable 04/28/17 07:45 Platelet Estimate Not Reportable 04/28/17 07:45 Clumped Platelets Not Reportable 04/28/17 07:45 Plt Clumps, EDTA Not Reportable 04/28/17 07:45 Large Platelets Not Reportable 04/28/17 07:45 Giant Platelets Not Reportable 04/28/17 07:45 Platelet Satelliting Not Reportable 04/28/17 07:45 Plt Morphology Comment Not Reportable 04/28/17 07:45 RBC Morphology Not Reportable 04/28/17 07:45 Dimorphic RBCs Not Reportable 04/28/17 07:45 Polychromasia 1+ 04/28/17 07:45 Hypochromasia Not Reportable 04/28/17 07:45 Poikilocytosis 2+ 04/28/17 07:45 Anisocytosis 2+ 04/28/17 07:45 Microcytosis Not Reportable 04/28/17 07:45 Macrocytosis Not Reportable 04/28/17 07:45 Spherocytes Not Reportable 04/28/17 07:45 Pappenheimer Bodies Not Reportable 04/28/17 07:45 Sickle Cells 2+ 04/28/17 07:45 Target Cells Few 04/28/17 07:45 Tear Drop Cells Not Reportable 04/28/17 07:45 Ovalocytes Not Reportable 04/28/17 07:45 Helmet Cells Not Reportable 04/28/17 07:45 Estrella-Larimore Bodies Not Reportable 04/28/17 07:45 [place] Rings Not Reportable 04/28/17 07:45 Brandt Cells Not Reportable 04/28/17 07:45 Bite Cells Not Reportable 04/28/17 07:45 Crenated Cell Not Reportable 04/28/17 07:45 Elliptocytes 1+ 04/28/17 07:45 Acanthocytes (Spur) Not Reportable 04/28/17 07:45 Rouleaux Not Reportable 04/28/17 07:45 Hemoglobin C Crystals Not Reportable 04/28/17 07:45 Schistocytes Not Reportable 04/28/17 07:45 Malaria parasites Not Reportable 04/28/17 07:45 Percent Retic 6.92 % (0.78-2.58) H 04/26/17 18:37 Ronaldo Bodies Not Reportable 04/28/17 07:45 Hem Pathologist Commnt No 04/28/17 07:45 Sodium 139 mmol/L (137-145) 04/28/17 07:45 Potassium 4.4 mmol/L (3.6-5.0) 04/28/17 07:45 Chloride 105.9 mmol/L (98-107) 04/28/17 07:45 Carbon Dioxide 24 mmol/L (22-30) 04/28/17 07:45 Anion Gap 14 mmol/L 04/28/17 07:45 BUN 13 mg/dL (9-20) 04/28/17 07:45 Creatinine 0.8 mg/dL (0.8-1.5) 04/28/17 07:45 Estimated GFR > 60 ml/min 04/28/17 07:45 BUN/Creatinine Ratio 16 % 04/28/17 07:45 Glucose 128 mg/dL (75-100) H 04/28/17 07:45 Calcium 8.0 mg/dL (8.4-10.2) L 04/28/17 07:45 Iron 110 ug/dL (49-181) 04/27/17 18:45 TIBC 121 mcg/dL (250-450) L 04/27/17 18:45 Ferritin > 2000.0 ng/mL (13.0-400.0) H 04/27/17 18:45 Blood Type O POSITIVE 04/27/17 10:50 Antibody Screen Negative 04/27/17 10:50 Crossmatch See Detail 04/27/17 10:50
--- NOTE | 2017-04-29 21:40 | Progress Note ---
Assessment and Plan - Patient Problems (1) Sickle cell crisis Current Visit: Yes Status: Acute Plan to address problem: Supportive as you are doing. (2) Anemia Current Visit: Yes Status: Acute Plan to address problem: replacement transfusion, while you watch his iron content. (3) Cardiomegaly Current Visit: Yes Status: Acute Plan to address problem: May reduce rate of IVF. (4) Iron overload due to repeated red blood cell transfusions Current Visit: Yes Status: Acute Plan to address problem: will address out patient. Subjective Date of service: 04/29/17 Interval history: patient resting in bed, labs reviewed, agree with replacement transfusion. patient resting in bed, record reviewed. no new issues at this time.Continue to monitor with you. Objective - Constitutional Vitals: Vital Signs - 12hr 04/29/17 04/29/17 14:50 20:52 Temperature 98.5 F 98.9 F Pulse Rate 61 49 L Respiratory 16 20 Rate Blood Pressure 119/79 Blood Pressure 129/78 [Left] O2 Sat by Pulse 98 99 Oximetry General appearance: Present: mild distress, well-nourished - EENT Eyes: PERRL, EOM intact ENT: hearing intact, clear oral mucosa Ears: bilateral: normal - Neck Neck: supple, normal ROM - Respiratory Respiratory effort: normal Respiratory: bilateral: CTA - Breasts Breasts: deferred - Cardiovascular Rhythm: regular Heart Sounds: Present: S1 & S2. Absent: gallop, rub Extremities: pulses intact, No edema, normal color, Full ROM - Gastrointestinal General gastrointestinal: Present: soft, non-tender, non-distended, normal bowel sounds Rectal Exam: deferred - Genitourinary Male genitourinary: deferred - Integumentary Integumentary: clear, warm, dry - Musculoskeletal Musculoskeletal: 1, strength equal bilaterally - Neurologic Neurologic: moves all extremities - Psychiatric Psychiatric: memory intact, appropriate mood/affect, intact judgment & insight - Labs CBC & Chem 7: 04/29/17 06:00 04/28/17 07:45 Labs: Abnormal lab results 04/29/17 Range/Units 06:00 RBC 2.33 L (3.65-5.03) M/mm3 Hgb 8.0 L (11.8-15.2) gm/dl Hct 22.6 L (35.5-45.6) % MCV 97 H (84-94) fl MCH 34 H (28-32) pg MCHC 35 H (32-34) % RDW 28.6 H (13.2-15.2) % Will % (Auto) 10.3 H (0.0-7.3) % Eos % (Auto) 6.4 H (0.0-4.3) % Will # 1.0 H (0.0-0.8) K/mm3 Eos # 0.6 H (0.0-0.4) K/mm3
[2017-04-30] MEDS: DILAUDID IV PRN ×3 (03:02→09:22)
[2017-04-30] MEDS: DOLOPHINE PO SCH ×3 (03:03→12:02)
[2017-04-30] MEDS: BENADRYL IV PRN ×2 (06:11→12:02)
[2017-04-30] MEDS: HEPARIN SUB-Q SCH (06:12)
--- NOTE | 2017-04-30 07:51 | Discharge Summary ---
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 The pain was worse in his back and legs. The patient was admitted for sickle cell pain crisis. Patient received supportive care with IV fluid hydration and IV pain medications. Patient also received 2 units of PRBCs. The patient was noted to have iron overload and was followed by hematology, who will see the patient has an outpatient. Dedicated discharge time 32 minutes. Disposition: TO HOME OR SELFCARE Time spent for discharge: 32 - Discharge Diagnoses (1) Anemia Status: Acute (2) Sickle cell crisis Status: Acute Core Measure Documentation - Palliative Care Palliative Care/ Comfort Measures: Not Applicable - Core Measures Any of the following diagnoses?: none Exam - Constitutional Vitals: Temp Pulse Resp BP Pulse Ox 98.9 F 49 L 20 129/78 99 04/29/17 20:52 04/29/17 20:52 04/29/17 20:52 04/29/17 20:52 04/29/17 20:52 General appearance: Present: no acute distress, well-nourished - EENT Eyes: Present: PERRL ENT: hearing intact, clear oral mucosa - Neck Neck: Present: supple, normal ROM - Respiratory Respiratory effort: normal Respiratory: bilateral: CTA - Cardiovascular Heart Sounds: Present: S1 & S2. Absent: rub, click - Extremities Extremities: pulses symmetrical, No edema Peripheral Pulses: within normal limits - Abdominal General gastrointestinal: Present: soft, non-tender, non-distended, normal bowel sounds Male genitourinary: Present: normal - Integumentary Integumentary: Present: clear, warm, dry - Musculoskeletal Musculoskeletal: gait normal, strength equal bilaterally - Psychiatric Psychiatric: appropriate mood/affect, intact judgment & insight - Neurologic Neurologic: CNII-XII intact, moves all extremities Plan Activity: no restrictions Weight Bearing Status: Full Weight Bearing Diet: regular Follow up with: PRIMARY CARE, [Primary Care Provider] - 7 Days MAURICE LOVE DO [Staff Physician] - 7 Days Prescriptions: Folic Acid 1 mg pe PO QAM #30 tablet Hydroxyurea 500 mg PO BID #60 Methadone [Dolophine] 10 mg PO Q6H #10 tablet Oxycodone HCl 80 mg PO Q12H #10 tablet
[2017-04-30] MEDS ORDERED: FLUSH HEPARIN IV ONE (10:45)
[2017-04-30] MEDS: OxyCONTIN PO SCH (10:49)
[2017-04-30] MEDS ORDERED: TRIPLE ANTIBIOTIC TP ONE (11:31)
[2017-04-30 12:08] VITALS: BP 129/78
[2017-04-30] MEDS ORDERED: TRIPLE ANTIBIOTIC TP SCH (14:00)
== END 2017-04-30 15:25 | disposition home or self-care (01) | DRG 812 ==
LOC: ED 16:47 → 3A 04-27 03:12
PROVIDERS: ADMIT Internal Medicine; ATTEND Hospitalist
PROC: 30233N1 Transfusion of Nonautologous Red Blood Cells into Peripheral Vein, Percutaneous Approach (ICD-10-PCS; principal; 2017-04-28)
DX: D57.00 Hb-SS disease with crisis, unspecified (principal); D64.9 Anemia, unspecified; I11.9 Hypertensive heart disease without heart failure; E83.111 Hemochromatosis due to repeated red blood cell transfusions; Z88.8 Allergy status to other drugs, medicaments and biological substances; Z88.5 Allergy status to narcotic agent; Z79.899 Other long term (current) drug therapy; Z90.49 Acquired absence of other specified parts of digestive tract
CPT/HCPCS: 36415; 71045; 80048; 82728; 83550; 85007; 85018; 85025; 85045; 85660; 86850; 86900; 86901; 86902; 86920; 94760; 96361; 96374; 96375; 96376; A6250; J1170; J1200; J1642; J1644; J1885; J2405; J2997; J7030; J7040; P9016

== ENCOUNTER 2017-04-30 19:51 | Emergency (ER) | payer MEDICARE, OTHER ==
[2017-05-01] MEDS ORDERED: D5NS 0.2% 1,000 ML IV SCH (14:00)
[2017-05-01 14:37] LABS: Hematocrit 26.8 % (35.5-45.6); Hemoglobin 9.2 gm/dl (11.8-15.2); Mean Corpuscular HGB Conc 34 % (32-34); Mean Corpuscular Hemoglobin 32 pg (28-32); Mean Corpuscular Volume 95 fl (84-94); Platelet Count 212 K/mm3 (140-440); Red Blood Count 2.83 M/mm3 (3.65-5.03); Red Cell Distribution Width 26.4 % (13.2-15.2)
[2017-05-01 15:18] LABS: Basophils % (Manual) 0 % (0.0-1.8); Total Cells Counted 100
[2017-05-01 15:19] LABS: Anisocytosis 3+; Howell-Jolly Bodies Few; Hypochromasia 1+; Macrocytosis 1+; Pappenheimer Bodies 1+; Platelet Estimate Consistent w Auto; Sickle Cells 1+; Target Cells 1+
[2017-05-01] MEDS ORDERED: DILAUDID IV ONE (15:45)
[2017-05-01] MEDS ORDERED: ZOFRAN IV ONE (15:45)
[2017-05-01] MEDS ORDERED: BENADRYL IV ONE (15:45)
--- NOTE | 2017-05-01 16:27 | Emergency Department Report ---
ED General Adult HPI - General Chief complaint: Sickle Cell Crisis Stated complaint: SICKLE CELL Time Seen by Provider: 05/01/17 16:06 Source: patient Mode of arrival: Ambulatory Limitations: No Limitations - History of Present Illness Initial comments: 31 yo male who comes in today due to complaints of generalized pain. He states that he was admitted inpatient for three days and then discharged on yesterday for a sickle cell crisis. He states that his po pain medications aren't working. Reticulocyte count on admit was 6.92. Reticulocyte count on today is currently 1.79. H/H is stable. His pain is described as generalized, diffuse, 9/10, aching/sharp. He was discharged with oxycodone and methadone, in addition hydroxyurea and folic acid. -: days(s) (one ) Radiation: non-radiation Severity scale (0 -10): 9 Consistency: constant Improves with: medication Worsens with: other (when pain meds wear off ) Associated Symptoms: denies other symptoms Treatments Prior to Arrival: none - Related Data Previous Rx's Medication Instructions Recorded Last Taken Type Folic Acid 1 mg pe PO QAM #30 tablet 04/30/17 Unknown Rx Hydroxyurea 500 mg PO BID #60 04/30/17 Unknown Rx Methadone [Dolophine] 10 mg PO Q6H #10 tablet 04/30/17 Unknown Rx Oxycodone HCl 80 mg PO Q12H #10 tablet 04/30/17 Unknown Rx Allergies Allergy/AdvReac Type Severity Reaction Status Date / Time acetaminophen [From Vicodin] Allergy Rash Verified 04/30/17 20:02 hydrocodone [From Vicodin] Allergy Rash Verified 04/30/17 20:02 ED Review of Systems ROS: Stated complaint: SICKLE CELL Other details as noted in HPI Constitutional: denies: chills, fever Eyes: denies: eye pain, eye discharge, vision change ENT: denies: ear pain, throat pain Respiratory: denies: cough, shortness of breath, wheezing Cardiovascular: denies: chest pain, palpitations Endocrine: no symptoms reported Gastrointestinal: denies: abdominal pain, nausea, diarrhea Genitourinary: denies: urgency, dysuria Musculoskeletal: other (generalized pain-diffusely ) Neurological: denies: headache, weakness, paresthesias Psychiatric: denies: anxiety, depression Hematological/Lymphatic: denies: easy bleeding, easy bruising ED Past Medical Hx - Past Medical History Previous Medical History?: Yes Hx Hypertension: Yes Hx Congestive Heart Failure: No Hx Diabetes: No Hx Sickle Cell Disease: Yes Hx Asthma: No Hx COPD: No Hx HIV: No Additional medical history: enlarged heart, Gallstones - Surgical History Additional Surgical History: Left chest port - Social History Smoking Status: Never Smoker Substance Use Type: None - Medications Home Medications: Home Medications Medication Instructions Recorded Confirmed Last Taken Type Folic Acid 1 mg pe PO QAM #30 tablet 04/30/17 Unknown Rx Hydroxyurea 500 mg PO BID #60 04/30/17 Unknown Rx Methadone [Dolophine] 10 mg PO Q6H #10 tablet 04/30/17 Unknown Rx Oxycodone HCl 80 mg PO Q12H #10 tablet 04/30/17 Unknown Rx ED Physical Exam - General Limitations: No Limitations General appearance: anxious - Head Head exam: Present: atraumatic, normocephalic - Eye Eye exam: Present: normal appearance - ENT ENT exam: Present: mucous membranes moist - Neck Neck exam: Present: normal inspection - Respiratory Respiratory exam: Present: normal lung sounds bilaterally. Absent: respiratory distress - Cardiovascular Cardiovascular Exam: Present: regular rate - GI/Abdominal GI/Abdominal exam: Present: soft - Extremities Exam Extremities exam: Present: normal inspection - Back Exam Back exam: Present: normal inspection - Neurological Exam Neurological exam: Present: alert, oriented X3 - Psychiatric Psychiatric exam: Present: anxious - Skin Skin exam: Present: warm, dry, intact, normal color. Absent: rash ED Course Vital Signs 04/30/17 05/01/17 05/01/17 20:03 04:42 14:07 Temperature 98.7 F 98.4 F 98.3 F Pulse Rate 66 51 L 57 L Respiratory 20 16 13 Rate Blood Pressure 131/59 122/69 Blood Pressure 121/66 [Right] O2 Sat by Pulse 95 97 95 Oximetry 05/01/17 14:08 Temperature Pulse Rate Respiratory 13 Rate Blood Pressure Blood Pressure [Right] O2 Sat by Pulse 95 Oximetry - Reevaluation(s) Reevaluation #1: 05/01/17 16:28 Patient was recently discharged from the hospital on yesterday. H/H stable. Reticulocyte unremarkable. Can take po meds. Plan to discharge home with follow up with his PMD and Hem/Oncology as scheduled. ED Medical Decision Making - Lab Data Result diagrams: 05/01/17 14:00 - Medical Decision Making Sickle cell disease Chronic pain Anemia - Differential Diagnosis Sickle cell disease, chronic pain, anemia Critical care attestation.: If time is entered above; I have spent that time in minutes in the direct care of this critically ill patient, excluding procedure time. ED Disposition Clinical Impression: Anemia, Sickle cell disease, Chronic pain Disposition: - TO HOME OR SELFCARE Is pt being admited?: No Does the pt Need Aspirin: No Condition: Stable Instructions: Sickle Cell Crisis (ED), Sickle Cell Disease in Children (ED) Additional Instructions: Take your medicines as prescribed. Follow up with your primary care provider and Hematology/Oncology as scheduled. Remember to hydrate always. Return to the ED for uncontrollable pain, fever, chills, nausea, or vomiting. Referrals: ZANDRA ZAVALETA MD [Primary Care Provider] - 3-5 Days Time of Disposition: 16:30
[2017-05-01] MEDS ORDERED: FLUSH HEPARIN IV ONE (16:35)
[2017-05-01 16:44] LABS: Alanine Aminotransferase 89 units/L (7-56); BUN/Creatinine Ratio 26; Blood Urea Nitrogen 21 mg/dL (9-20); Calcium 8.9 mg/dL (8.4-10.2); Hemolysis Index 19
[2017-05-01 17:16] VITALS: BP 117/64
== END 2017-05-01 17:16 | disposition home or self-care (01) ==
LOC: ED 19:51
DX: D57.1 Sickle-cell disease without crisis (principal); D64.9 Anemia, unspecified; I10 Essential (primary) hypertension
CPT/HCPCS: 36415; 80053; 85007; 85025; 85045; 96361; 96374; 96375; 99283; J1170; J1200; J1642; J2405